=== PATIENT | female | born 1990 | race Caucasian/White ===

== ENCOUNTER 2024-08-05 06:07 | Day surgery (SDC) | payer BC, SELFPAY ==
[2024-07-30 10:51] LABS: % Basophils 0.6 % (0-2); % Eosinophils 1.6 % (0-6); % Immature Granulocytes 0.2 % (0-0.5); % Lymphocytes 39.2 % (20.5-51.1); % Monocytes 10.4 % (1.7-9.3); Absolute Eosinophils 0.1 10^3/uL (0-0.7); Absolute Lymphocytes 1.9 10^3/uL (1.2-3.4); Absolute Monocytes 0.5 10^3/uL (0.1-0.6); Absolute Neutrophils 2.4 10^3/uL (1.4-6.5); Hematocrit 41.6 % (37.0-47.0); INR 0.96; Mean Corp Hgb Conc. 33.7 g/dL (33.0-37.0); Mean Corpuscular Volume 89.3 fL (81.0-99.0); Mean Platelet Volume 10.9 fL (7.4-10.4); Nucleated Red Blood Cells % 0 %; PT 13.1 Sec (11.4-14.6); Platelet Count 158 10^3/uL (130-400); Red Blood Cell Count 4.66 10^6/uL (4.20-5.40); Red Cell Dist. Width 12.2 % (11.5-14.5); White Blood Cell Count 4.9 10^3/uL (4.8-10.8)
[2024-07-30 10:52] LABS: APTT 36.3 Sec (23.4-35.0)
[2024-07-30 12:30] VITALS: BMI 23.0
[2024-08-05] VITALS (8 sets, daily range): BP systolic 106–122; BP diastolic 67–87; BMI 23.0
== END 2024-08-05 09:47 | disposition home or self-care (01) ==
LOC: SDS 06:07
PROVIDERS: ATTENDING PHYSICIAN Obstetrics & Gynecology; FAMILY PHYSICIAN Student in an Organized Health Care Education/Training Program
PROC: 0UT74ZZ Resection of Bilateral Fallopian Tubes, Percutaneous Endoscopic Approach (ICD-10-PCS; 2024-08-05)
DX: Z30.2 Encounter for sterilization (principal)
CPT/HCPCS: 58661; 88302; 36415; 85025; 85610; 85730; C1776

== ENCOUNTER → 2025-01-24 10:05 | Outpatient (REF) | payer BC, SELFPAY | LOC: HWRAD 10:05 | PROVIDERS: ATTENDING PHYSICIAN Obstetrics & Gynecology; FAMILY PHYSICIAN Student in an Organized Health Care Education/Training Program | DX: R10.2 Pelvic and perineal pain (principal); M62.89 Other specified disorders of muscle | CPT/HCPCS: 76830; 76856 ==

== ENCOUNTER 2025-03-17 11:01 | Outpatient (RCR) | payer OTHER, SELFPAY | END 2025-03-17 23:59 | disposition home or self-care (01) | LOC: RPT 11:01 | PROVIDERS: ATTENDING PHYSICIAN Obstetrics & Gynecology; FAMILY PHYSICIAN Student in an Organized Health Care Education/Training Program | DX: R10.2 Pelvic and perineal pain (principal); M62.89 Other specified disorders of muscle; N39.3 Stress incontinence (female) (male); N81.6 Rectocele; Z73.6 Limitation of activities due to disability | CPT/HCPCS: 97014; 97110; 97140; 97162; 97530 ==

== ENCOUNTER 2025-04-21 11:02 | Outpatient (RCR) | payer OTHER, SELFPAY | END 2025-04-21 23:59 | disposition home or self-care (01) | LOC: RPT 11:02 | PROVIDERS: ATTENDING PHYSICIAN Obstetrics & Gynecology; FAMILY PHYSICIAN Student in an Organized Health Care Education/Training Program | DX: R10.2 Pelvic and perineal pain (principal); M62.89 Other specified disorders of muscle; N39.3 Stress incontinence (female) (male); N81.6 Rectocele; Z73.6 Limitation of activities due to disability | CPT/HCPCS: 97110; 97112; 97530 ==

== ENCOUNTER 2025-05-12 12:04 | Outpatient (RCR) | payer OTHER, SELFPAY | END 2025-05-12 23:59 | disposition home or self-care (01) | LOC: RPT 12:04 | PROVIDERS: ATTENDING PHYSICIAN Obstetrics & Gynecology; FAMILY PHYSICIAN Student in an Organized Health Care Education/Training Program | DX: R10.2 Pelvic and perineal pain (principal); M62.89 Other specified disorders of muscle; N39.3 Stress incontinence (female) (male); N81.6 Rectocele; Z73.6 Limitation of activities due to disability | CPT/HCPCS: 97112; 97530 ==